=== PATIENT | female | born 1955 | race Caucasian/White ===

== ENCOUNTER 2017-11-28 11:50 | Day surgery (SDC) | payer BC, OTHER ==
[~2017-11-28] VITALS: Ht 175.3 cm; Wt 77.0 kg
[~2017-11-28 11:50] MED LIST: Aspirin EC81 MG; FAMC250; FIORINAL-COD 31 EACH; TIZANIDINE HCL2 MG; VAGIFEM10 MCG; ZOLP5
[2017-11-28] MEDS ORDERED: Hydrocodone-Ap1 EA20 PO (12:23)
== END 2017-11-28 14:03 | disposition home or self-care (01) ==
LOC: ORSCSDS 11:50
PROVIDERS: Internal Medicine Gastroenterology
PROC: 0DBN8ZX Excision of Sigmoid Colon, Via Natural or Artificial Opening Endoscopic, Diagnostic (ICD-10-PCS; principal; 2017-11-28 13:00)
DX: Z12.11 Encounter for screening for malignant neoplasm of colon (principal); K55.9 Vascular disorder of intestine, unspecified; Z86.010 Personal history of colon polyps; K57.30 Diverticulosis of large intestine without perforation or abscess without bleeding; Z79.82 Long term (current) use of aspirin; Z79.899 Other long term (current) drug therapy
CPT/HCPCS: 88305; J7120

== ENCOUNTER → 2021-03-06 | Outpatient (CLI) | payer BC, OTHER ==
[~2021-03-06] MED LIST changes: +Hydrocodone-Ap1 EA20 PO
[2021-03-06 19:11] LABS: U Amphetamine Screen Not Detected; U Barbituate Screen Not Detected; U Benzodiazapine Screen Not Detected; U Buprenorphine Screen Not Detected; U Cannabinoids Screen Not Detected; U Cocaine Screen Not Detected; U Methadone Screen Not Detected; U Methamphetamine Screen Not Detected; U Opiates Screen DETECTED; U Oxycodone Screen Not Detected; U Phencyclidine Screen Not Detected; U Propoxyphene Screen Not Detected
== END ==
LOC: LAB SHORT 17:41 → LAB FUT 02-25 09:00
PROVIDERS: Physician Assistant
DX: Z51.81 Encounter for therapeutic drug level monitoring (principal); Z79.891 Long term (current) use of opiate analgesic
CPT/HCPCS: G0480